=== PATIENT | male | born 1980 | race African-American/Black ===

== ENCOUNTER 2018-10-31 03:27 | Emergency (ER) | payer OTHER ==
[~2018-10-31] VITALS: Ht 167.6 cm; Wt 84.5 kg
[2018-10-31 03:38] VITALS: Ht 167.6 cm; Wt 84.5 kg
[2018-10-31] MEDS ORDERED: CARAFATE1 G PO (03:40)
[2018-10-31] MEDS ORDERED: ZANTAC300 MG PO (03:40)
[2018-10-31] MEDS ORDERED: PROTONIX40 MG PO (04:16)
[2018-10-31] MEDS ORDERED: PREVACID30 MG PO (04:30)
[2018-10-31 05:09] VITALS: BP 149/76
== END 2018-10-31 05:09 | disposition home or self-care (01) ==
LOC: D.ER 03:27
DX: R10.13 Epigastric pain (principal)

== ENCOUNTER 2018-11-28 21:22 | Emergency (ER) | payer OTHER ==
[~2018-11-28] VITALS: Ht 167.6 cm; Wt 90.9 kg
[~2018-11-28 21:22] MED LIST: CARAFATE1 G PO; PREVACID30 MG PO; PROTONIX40 MG PO; ZANTAC300 MG PO
[2018-11-28 21:39] VITALS: Ht 167.6 cm; Wt 90.9 kg
[2018-11-28 22:01] LABS: BASOPHILS 0.2 % (0-2); EOSINOPHILS 0.4 % (0-7); HEMATOCRIT 47.5 % (42.0-54.0); HEMOGLOBIN 16.1 g/dL (13.5-17.5); IMMATURE GRANULOCYTES 0.2 % (0-5); LYMPHOCYTES 33.5 % (15-50); MCH 26.7 pg (26.0-34.0); MCHC 33.9 g/dL (31.0-37.0); MCV 78.6 fL (80.0-100.0); MEAN PLATELET VOLUME 10.8 fL (7.4-10.4); MONOCYTES 8.7 % (2-11); PLATELET COUNT 183 10x3/uL (130-400); RBC 6.04 10x6/uL (4.20-6.10); RDW 12.7 % (11.5-14.5); WBC 4.6 10x3/uL (4.8-10.8)
[2018-11-28 22:17] LABS: ALBUMIN 4.3 g/dL (3.4-5.0); ALKALINE PHOSPHATASE 66 U/L (46-116); ALT (SGPT) 49 U/L (10-68); CALC OSMOLALITY 275 mosm/kg (275-300); CALCIUM 9.8 mg/dL (8.5-10.1); CARBON DIOXIDE 27.1 mmol/L (21.0-32.0); CHLORIDE - SERUM 101 mmol/L (98-107); CREATININE - SERUM 1.2 mg/dL (0.6-1.3); GLUCOSE 92 mg/dL (74-106); POTASSIUM - SERUM 3.9 mmol/L (3.5-5.1); SODIUM 139 mmol/L (136-145); UREA NITROGEN 8 mg/dL (7-18); eGFR NON AFRICAN AMERICAN 71 mL/min (90-120)
[2018-11-28 22:22] LABS: AMYLASE - SERUM 93 U/L (25-115); LIPASE 355 U/L (73-393); TROPONIN-I < 0.017 ng/mL (0.000-0.060)
[2018-11-29 02:07] LABS: APPEARANCE CLEAR (CLEAR); BILIRUBIN NEGATIVE (NEGATIVE); COLOR YELLOW (YELLOW); GLUCOSE NEGATIVE (NEGATIVE); KETONE LARGE mg/dL (NEGATIVE); NITRITE NEGATIVE (NEGATIVE); PROTEIN NEGATIVE (NEGATIVE); UROBILINOGEN NORMAL (NORMAL)
[2018-11-29 04:15] VITALS: BP 125/87
== END 2018-11-29 04:09 | disposition home or self-care (01) ==
LOC: D.ER 21:22
PROVIDERS: Family Medicine
DX: R10.13 Epigastric pain (principal); F43.22 Adjustment disorder with anxiety